=== PATIENT | female | born 1965 | race Caucasian/White ===

== ENCOUNTER → 2016-12-15 | Outpatient (CLI) | payer OTHER ==
[~2016-12-15] MED LIST: CHOL50005 PO; HYDR-3534 PO; LEVO125T4 PO; LIOT50 PO; MAGN400T3 PO; METO5TAB PO; OXYC-360 PO; PROT40TA PO; SUMA6P SQ
[2016-12-15 13:54] LABS: HEMATOCRIT 39.3 % (35.0-46.0); HEMOGLOBIN 13.1 GM/DL (11.6-15.3); MEAN CELL VOLUME 89.9 FL (80.0-100.0); MEAN CORPUSCULAR HEMOGLOBIN 29.9 PG (27.0-34.0); MEAN CORPUSCULAR HGB CONC 33.3 % (32.0-36.0); PLATELET COUNT 288 TH/MM3 (150-450); RED BLOOD COUNT 4.38 MIL/MM3 (4.00-5.30); RED CELL DISTRIBUTION WIDTH 14.4 % (11.6-17.2); WHITE BLOOD COUNT 5.4 TH/MM3 (4.0-11.0)
[2016-12-15 14:51] LABS: BILIRUBIN, URINE NEG (NEG); BLOOD, URINE NEG (NEG); GLUCOSE,URINE NEG (NEG); KETONE, URINE NEG (NEG); NITRITE,URINE NEG (NEG); PH, URINE 7.5 (5.0-8.5); URINE COLOR LIGHT-YELLOW (YELLW/STRAW); URINE LEUKOCYTE ESTERASE NEG (NEG)
--- NOTE | 2016-12-16 16:09 | EKG ---
Date Performed: 12/15/2016 Time Performed: 13:29:24 PTAGE: 51 years EKG: Sinus rhythm POSSIBLE LEFT ATRIAL ENLARGEMENT BORDERLINE ECG Compared to prior tracing no significant change PREVIOUS TRACING : 09/28/2007 13.25.48 DOCTOR: Cristobal Fierro Interpretating Date/Time 12/16/2016 16:07:05
== END ==
LOC: CPRE 13:07
PROVIDERS: ATTEND Obstetrics & Gynecology
DX: Z01.810 Encounter for preprocedural cardiovascular examination (principal); Z01.812 Encounter for preprocedural laboratory examination; N92.4 Excessive bleeding in the premenopausal period; N94.6 Dysmenorrhea, unspecified; D25.9 Leiomyoma of uterus, unspecified; R94.31 Abnormal electrocardiogram [ECG] [EKG]
CPT/HCPCS: 36415; 81001; 84702; 85027; 93005

== ENCOUNTER 2016-12-17 13:32 | Observation (INO) | payer OTHER ==
--- NOTE | 2016-12-16 17:50 | MH ---
cc: IFEOMA LOPEZ DATE OF : 61 DATE OF ADMISSION: 12/17/2016 ADMITTING DIAGNOSIS: Menorrhagia, dysmenorrhea with fibroids and menstrual related headaches. HISTORY OF PRESENT ILLNESS The patient is a 51-year-old white female para 1-0-0-1 with over one year history of menorrhagia, dysmenorrhea, and increasing menstrual headaches, refractory to medical therapy. Her vaginal ultrasound from 04/08/16 showed multiple small fibroids with uterine enlargement. Ovaries were normal size. Her endometrial biopsy was benign on 04/24/2016. Her Pap smear was normal in March. Her laboratory studies have been compatible with perimenopause. She is now admitted for hysterectomy. PAST SURGICAL HISTORY: T&A age 11. Rectal sphincterotomy 1986 for fissure. MEDICATIONS Vitamins. ALLERGIES None TRANSFUSIONS None. OBSTETRICAL HISTORY One vaginal delivery in 1996, male. SOCIAL HISTORY She is . She is a homemaker. Alcohol, tobacco and drugs are none. FAMILY HISTORY: Noncontributory. PHYSICAL EXAMINATION: Reveals a well-nourished, well-developed white female. Vital signs stable. HEENT: Normal. CHEST: Clear. HEART: Regular rate. ABDOMEN: Benign. PELVIC: Vagina is normal. Cervix normal. Uterus enlarged about 12 weeks size. Adnexa nonpalpable. ASSESSMENT: As above. PLAN: She is now admitted for laparoscopy, planned LASH BSO, possible MYNOR-BSO. While in the office I explained the procedures, the risks, benefits, complications and the benefits of postoperative hormone replacement therapy. The patient would like to proceed. MD SANFORD Sanford/BECKA /5:12 PM /5:37 PM
[~2016-12-17] VITALS: Ht 162.6 cm; Wt 56.4 kg
[~2016-12-17 13:32] MED LIST changes: +DEXAMETHASONE SOD PHOS 4 MG/ML VIAL IV ONE; +GLYCOPYRROLATE 1 MG/5 ML SYRINGE IV PUSH ONE; +KETOROLAC TROMETHAMINE 30 MG/ML (IVP) VIAL IV PUSH ONE; +LACTATED RINGER'S 1000 ML INJ 1,000 ML IV ONE; +LIDOCAINE HCL 1% PF 5 ML AMPULE OTHER ONE; +MAGN1TAB14 PO; -MAGN400T3 PO; -METO5TAB PO; +METOPROLOL TARTRATE 5 MG/5 ML VIAL IV PUSH ONE; +MIDAZOLAM HCL 2 MG/2 ML VIAL IV ONE; +NEOSTIGMINE 3 MG/3 ML SYR IV ONE; +ONDANSETRON HCL 4 MG/2 ML VIAL IV PUSH ONE; -OXYC-360 PO; +PROPOFOL 200 MG/20 ML AMP IV ONE; -PROT40TA PO; +ROCURONIUM INJ 50 MG/5 ML SYRINGE IV PUSH ONE; +SODIUM CHLORIDE 0.9% 20 ML VIAL IV ONE
[2016-12-17] MEDS ORDERED: POVIDONE IODINE 5% (ANTISEPSIS KIT) 4 APPLICATIONS EACH NARE PRN (14:00)
[2016-12-17] MEDS ORDERED: INSULIN HUMAN REGULAR 1,000 UNITS/10 ML VIAL SQ PRN (14:00)
[2016-12-17] MEDS ORDERED: LACTATED RINGER'S 1000 ML IV PRN (14:00)
[2016-12-17] MEDS ORDERED: SODIUM CHLORID 0.9% 500 ML IV PRN (14:00)
[2016-12-17] MEDS ORDERED: ACETAMINOPHEN 1000 MG/100 ML 100 ML IV SCH (14:00)
[2016-12-17] MEDS ORDERED: CHLORHEXIDINE GLUCONATE 2 % 1 PACK (2 CLOTHS) TOPICAL PRN (14:00)
[2016-12-17] MEDS ORDERED: METOPROLOL TARTRATE 25 MG TAB PO PRN (14:00)
[2016-12-17] MEDS ORDERED: ceFAZolin 1,000 MG/NS 100 ML IV SCH ×2 (14:00)
[2016-12-17] MEDS ORDERED: ROPIVACAINE 0.5% PF INJ 30 ML VIAL ONE (15:12)
[2016-12-17] MEDS ORDERED: DEXAMETHASONE SOD PHOS 20 MG/5 ML VIAL ONE (15:13)
[2016-12-17] MEDS ORDERED: ACETAMINOPHEN 1000 MG/100 ML 0 ML IV ONE (15:20)
[2016-12-17] MEDS ORDERED: SUGAMMADEX SODIUM 200 MG/2 ML VIAL IV PUSH ONE ×2 (15:20)
[2016-12-17] MEDS ORDERED: FAMOTIDINE 20 MG/2 ML VIAL ONE (15:38)
[2016-12-17] MEDS: D5-1/2 NS + KCL 20 MEQ INJ 1,000 ML IV SCH (17:16)
[2016-12-17] MEDS ORDERED: ONDANSETRON HCL 4 MG/2 ML VIAL IV PUSH PRN (17:30)
[2016-12-17] MEDS ORDERED: HYDROmorphone HCL PF 1 MG/ML VIAL IV PUSH PRN (17:30)
[2016-12-17] MEDS ORDERED: ZOLPIDEM TARTRATE 5 MG TAB PO PRN (17:30)
[2016-12-17] MEDS ORDERED: PROMETHAZINE INJ 25 MG/ML VIAL IM PRN (17:30)
[2016-12-17] MEDS ORDERED: SODIUM CHLORIDE 0.9% FLUSH 5 ML FLUSH FLUSH PRN (17:30)
[2016-12-17] MEDS ORDERED: ONDANSETRON ODT 4 MG TAB PO PRN (17:30)
[2016-12-17] MEDS ORDERED: diphenhydrAMINE HCL 25 MG CAP PO PRN (17:30)
[2016-12-17] MEDS ORDERED: PROMETHAZINE HCL 25 MG TAB PO PRN (17:30)
[2016-12-17] MEDS ORDERED: DO NOT ADM ANY ANTICOAGULANT DRUGS PRN (17:35)
[2016-12-17] MEDS: KETOROLAC TROMETHAMINE 30 MG/ML (IVP) VIAL IVP SCH (18:00)
[2016-12-17] MEDS ORDERED: *morphine SULFATE 8 MG/ML PERIprocedure ONLY ONE (18:12)
[2016-12-17] MEDS ORDERED: *MEPERIDINE 25 MG INJ VIAL PERIprocedural Use ONLY ONE (18:15)
[2016-12-17] MEDS ORDERED: SUMAtriptan INJ 6 MG/0.5 ML VIAL SQ PRN (19:00)
[2016-12-17 19:50] VITALS: BP 86/54; PULSE 56; RESP 17; TEMP 98.3; O2SAT 100
[2016-12-17 21:00] LABS: HEMATOCRIT 38.5 % (35.0-46.0); REVIEW FLAG FINAL
[2016-12-17] MEDS ORDERED: DOCUSATE SODIUM 100 MG CAP PO SCH (21:00)
[2016-12-17] MEDS ORDERED: SODIUM CHLORIDE 0.9% FLUSH 5 ML FLUSH FLUSH SCH (21:00)
[2016-12-17] MEDS: ACETAMINOPHEN 1000 MG/100 ML VIAL IV SCH (22:00)
[2016-12-17] MEDS ORDERED: SIMETHICONE 80 MG CHEWABLE TAB PO PRN (23:30)
[2016-12-18] VITALS: BP 97/57; PULSE 69; RESP 17; TEMP 97.9; O2SAT 97
[2016-12-18] MEDS: KETOROLAC TROMETHAMINE 30 MG/ML (IVP) VIAL IVP SCH ×2 (00:30→05:54)
[2016-12-18] MEDS: D5-1/2 NS + KCL 20 MEQ INJ 1,000 ML IV SCH (03:36)
[2016-12-18 05:15] VITALS: BP 93/53; PULSE 65; RESP 16; TEMP 98; O2SAT 98
[2016-12-18] MEDS: ACETAMINOPHEN 1000 MG/100 ML VIAL IV SCH (05:54)
[2016-12-18] MEDS ORDERED: LIOTHYRONINE SODIUM 25 MCG TAB PO SCH (06:00)
[2016-12-18] MEDS ORDERED: LEVOTHYROXINE SODIUM 125 MCG TAB PO SCH (06:00)
[2016-12-18 06:05] LABS: BASOPHIL % 0.2 % (0.0-2.0); HEMATOCRIT 35.9 % (35.0-46.0); HEMO FLAGS DIFF FINAL; LYMPH % 8.2 % (9.0-44.0); LYMPHOCYTE # 0.9 TH/MM3 (1.0-4.8); MEAN CELL VOLUME 89.8 FL (80.0-100.0); MEAN CORPUSCULAR HEMOGLOBIN 29.9 PG (27.0-34.0); MEAN CORPUSCULAR HGB CONC 33.3 % (32.0-36.0); MONO % 7.6 % (0.0-8.0); PLATELET COUNT 271 TH/MM3 (150-450); WHITE BLOOD COUNT 10.7 TH/MM3 (4.0-11.0)
[2016-12-18 06:22] LABS: BICARBONATE 23.2 MEQ/L (21.0-32.0); POTASSIUM 4.6 MEQ/L (3.5-5.1)
[2016-12-18 07:45] VITALS: BP 92/54; PULSE 56; RESP 20; TEMP 98.3
--- NOTE | 2016-12-18 08:20 | HHI.DCPOC ---
Discharge Care Plan Report Symptoms to Your Doctor -Temperature above 100.5 degrees -Redness, of incision or excessive or foul smelling drainage -Unusual pain or calf pain -Increased vaginal bleeding -Painful or difficulty urinating -Feelings of extreme sadness or anxiety after 2 weeks Goals to Promote Your Health * To prevent worsening of your condition and complications * To maintain your health at the optimal level Directions to Meet Your Goals Take your medications as prescribed Follow your dietary instruction Follow activity as directed Ensure plenty of rest for recovery Drink fluids for hydration Keep your appointments as scheduled Take your immunizations and boosters as scheduled If your symptoms worsen call your PCP, if no PCP go to Urgent Care Center or Emergency Room Smoking is Dangerous to Your Health. Avoid second hand smoke Call the 24-hour crisis hotline for domestic abuse at Deniz Weaver MD Dec 18, 2016 08:20
--- NOTE | 2016-12-18 09:58 | MP ---
cc: IFEOMA LOPEZ DATE OF SURGERY 12/17/2016 PREOPERATIVE DIAGNOSIS Menorrhagia, dysmenorrhea. POSTOPERATIVE DIAGNOSIS Menorrhagia, dysmenorrhea. PROCEDURE LASH, BSO. ANESTHESIA General ET. SURGEON Ifeoma Lopez MD LAW LIBRARIAN LEIDY Villarreal ESTIMATED BLOOD LOSS 100 cc FLUIDS About 1 liter crystalloid. OBJECTIVE FINDINGS Following the induction of adequate general endotracheal anesthesia, the patient was prepped and draped supine on the operating room table in the dorsal lithotomy position in the usual sterile fashion with the bladder being drained by Alvarado catheterization. The abdomen was opened through a 3-cm curving infraumbilical incision using a knife to cut down through the skin to the fascia. The fascia was opened transversely, stripped from the muscles. The peritoneum was opened sharply without incident. The mini-GelPort was placed, the laparoscope inserted and a 5-port was placed in the left lower quadrant and a port in the right lower quadrant. The uterus was about 12 weeks' size, symmetrically enlarged. Normal-appearing tubes and ovaries, normal cul-de-sacs, normal liver edge, normal appendix, normal liver and gallbladder. Harmonic scalpel was now used to take the left ovarian vessels, left round ligament, left broad ligament, left side of the bladder flap and the left uterine vessels. The same was done on the right. The harmonic scalpel was now used to amputate the fundus from the cervix and the fundus, tubes and ovaries extracted in the pouch through the GelPort site. Irrigation was performed. Hemostasis was good. Low-pressure test showed no bleeding in the Trendelenburg position. The operative site was now coated with Evicel, the ureters inspected with good peristalsis. The scope was not removed, the GelPort removed and the peritoneum closed with a running stitch of 2-0 Vicryl, the fascia with a running locking stitch of 0 Vicryl from each corner to the midline and tied; the subcu with running 3-0 Vicryl and the skin with a running subcuticular 3-0 Monocryl. The scope was now reinserted through the lower port sites and used to inspect the GelPort site which was well closed, no entrapment. The pelvis was inspected; there was no bleeding. The scope was now removed, the gas allowed to escape. The small ports were removed and sutured with 3-0 Monocryl subcuticular. Dermabond was applied. All counts were correct and the patient was awakened and taken to Recovery in good condition. MD SANFORD Sanford/[place]TE /5:19 PM /9:42 AM
== END 2016-12-18 09:37 | disposition home or self-care (01) ==
LOC: HSDC 13:32 → H1EA 19:28
PROVIDERS: ADMIT Obstetrics & Gynecology; ATTEND Obstetrics & Gynecology
DX: N80.0 Endometriosis of uterus (principal); N83.8 Other noninflammatory disorders of ovary, fallopian tube and broad ligament; N94.6 Dysmenorrhea, unspecified; N92.0 Excessive and frequent menstruation with regular cycle
CPT/HCPCS: 00840; 58542; 80048; 85014; 85018; 85025; 88307; 96374; 96375; 96376; G0378; J0131; J1100; J1885; J2175; J2250; J2270; J2405; J2710; J2795; J3010; J3480; J7120